=== PATIENT | male | born 1955 | race Caucasian/White ===

== ENCOUNTER 2018-04-03 20:58 | Inpatient (IN) | payer OTHER, SELFPAY ==
[2018-04-03 21:35] LABS: #Basophils 0.1 thou/uL (0.0-0.2); #Eosinphils 0.7 thou/uL (0.0-0.7); #Lymphocytes 2.4 thou/uL (1.20-3.40); #Monocytes 2.2 thou/uL (0.11-0.59); #Neutrophils 10.7 thou/uL (1.40-6.50); %Basophils 0.6 % (0.0-1.0); %Eosinophils 4.5 % (0.0-10.0); %Lymphocytes 14.9 % (21.0-51.0); %Monocytes 13.7 % (0.0-10.0); %Neutrophils 66.3 % (42.0-75.0); Hemoglobin 13.4 g/dL (14.0-18.0); Mean Corpuscular HGB CONC 32.9 g/dL (32.0-36.0); Mean Corpuscular Hemoglobin 29.6 pg (27.0-31.0); Platelet Count 371 thou/uL (130-400); RBC Distribution Width 12.4 % (11.5-14.5); Red Blood Cell (RBC) Count 4.52 mill/uL (4.70-6.10); White Blood Cell (WBC) Count 16.1 thou/uL (4.8-10.8)
--- NOTE | 2018-04-03 21:42 | RAD ---
CHEST ONE VIEW: 04/03/18 HISTORY: Cough. Vomiting. FINDINGS: Normal cardiac silhouette. Pulmonary vessels and hilum are normal. Costophrenic angles are clear. Pat adrienne interstitial opacities throughout the lung parenchyma, greatest in the lung bases. Bilateral lowe r lobe infiltrates cannot be excluded. There is no pneumothorax. No osseous abnormality. IMPRESSION: Bilateral lower lobe infiltrates. Continued surveillance to ensure resolution. POS: [facility]
[2018-04-03 21:57] LABS: ALT (SGPT) 30 U/L (8-55); AST (SGOT) 27 U/L (5-34); Albumin 3.3 g/dL (3.4-4.8); Alkaline Phosphatase 84 U/L (40-150); Anion Gap 13 mmol/L (10-20); BUN (Urea Nitrogen) 9 mg/dL (8.4-25.7); Bilirubin, Total 0.3 mg/dL (0.2-1.2); Calc. Creatinine Clearance 0 mL/min (70-130); Calcium 9.3 mg/dL (7.8-10.44); Carbon Dioxide 24 mmol/L (23-31); Chloride 103 mmol/L (98-107); Estimated GFR-MDRD Greater than 90; Globulin 3.4 g/dL (2.4-3.5); Glucose 137 mg/dL (80-115); Lipase 10 U/L (8-78); Potassium 3.8 mmol/L (3.5-5.1); Protein, Total 6.7 g/dL (5.8-8.1); Sodium 136 mmol/L (136-145)
[2018-04-03 22:54] LABS: Bilirubin Negative (Negative); Blood, Urine Negative (Negative); Clarity CLOUDY (Clear); Glucose, Urine (Dipstick) Negative (Negative); Leukocyte Moderate (Negative); Nitrite Negative (Negative); Protein, Urine (Dipstick) Negative (Neg-Trace); Specific Gravity, Urine 1.008 (1.002-1.036); pH, Urine 6.5 (5.0-9.0)
[2018-04-03 22:56] LABS: Bacteria/HPF Rare-Few HPF (None Seen); Hyaline Casts/LPF 0-3 HYALINE CAST LPF (0-3 Hyaline); RBC/HPF None Seen HPF (0-3); Squamous Epithelial None Seen HPF (0-3)
[2018-04-03] MEDS ORDERED: cefTRIAXone\\ROCEPHIN 1 GM VIAL ONE (23:55)
[2018-04-03] MEDS ORDERED: Azithromycin 500 MG VIAL ONE (23:55)
[2018-04-04 00:53] LABS: Troponin I 0.013 ng/mL (< 0.028)
[2018-04-04] MEDS ORDERED: Acetaminophen 325 MG TAB PO PRN (01:48)
[2018-04-04] MEDS ORDERED: Ondansetron ODT 4 MG TAB PO PRN (01:48)
[2018-04-04 02:05] VITALS: BMI 25.3
[2018-04-04 03:29] VITALS: TEMP 98.1
[2018-04-04 03:45] LABS: Band 11 % (5-11); Eosinophils 4 % (0-10); Hemoglobin 12.6 g/dL (14.0-18.0); Lymphocytes 26 % (21-51); MDiff Complete? YES; Mean Corpuscular HGB CONC 33.2 g/dL (32.0-36.0); Mean Corpuscular Hemoglobin 29.8 pg (27.0-31.0); Mean Corpuscular Volume 89.8 fL (78.0-98.0); Mean Platelet Volume 6.9 fL (7.4-10.4); Monocytes 11 % (0-10); Neutrophil 48 % (42-75); PLT Morphology Comment Appears Adequate; Platelet Count 354 thou/uL (130-400); RBC Distribution Width 12.2 % (11.5-14.5); Red Blood Cell (RBC) Count 4.24 mill/uL (4.70-6.10); White Blood Cell (WBC) Count 16.6 thou/uL (4.8-10.8)
[2018-04-04 03:54] LABS: ALT (SGPT) 26 U/L (8-55); AST (SGOT) 23 U/L (5-34); Albumin 2.9 g/dL (3.4-4.8); Alkaline Phosphatase 75 U/L (40-150); Anion Gap 11 mmol/L (10-20); BUN (Urea Nitrogen) 10 mg/dL (8.4-25.7); Bilirubin, Total 0.3 mg/dL (0.2-1.2); Calc. Creatinine Clearance 113 mL/min (70-130); Calcium 8.7 mg/dL (7.8-10.44); Carbon Dioxide 25 mmol/L (23-31); Chloride 107 mmol/L (98-107); Estimated GFR-MDRD Greater than 90; Globulin 2.9 g/dL (2.4-3.5); Glucose 122 mg/dL (80-115); Potassium 3.9 mmol/L (3.5-5.1); Protein, Total 5.8 g/dL (5.8-8.1); Sodium 139 mmol/L (136-145)
[2018-04-04 03:58] LABS: Troponin I Less than 0.010 ng/mL (< 0.028)
--- NOTE | 2018-04-04 04:23 | HP-2 ---
DATE OF ADMISSION: 04/04/2018 TIME OF ADMISSION: 0015. CODE STATUS: FULL. PRIMARY CARE PHYSICIAN: Dr. Lian Louis. ATTENDING: Dr. Len Duncan. HISTORIAN: Patient and family. CHIEF COMPLAINT: Cough. HISTORY OF PRESENT ILLNESS: This is a 63-year-old male with chief complaint of 1 day of cough associated with yellow sputum, who had a preceding 1 week event of feeling malaise, weak, and having chills. Symptom associated with yellow sputum production, increased SOB. He stated that he has not used any antibiotics within the last 3 months and he has not had issues like this before. His past medical history is pertinent for tobacco use approximately 40- year pack history and is a current smoker. In the ER, he received ceftriaxone, azithromycin, and 1 liter of normal saline. PAST MEDICAL HISTORY: 1. 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 2. Benign prostatic hypertrophy. 3. Hypertension. PAST SURGICAL HISTORY: 1. Right knee surgery. 2. Cholecystectomy. ALLERGIES: No known drug allergies. MEDICATIONS: 1. Amlodipine 10 mg daily. 2. Flomax 0.4 mg daily. 3. Lisinopril 20 mg daily. FAMILY HISTORY: Denies any family history of heart problem. Does endorse mother who has emphysema and who was also a heavy smoker. SOCIAL HISTORY: Endorses current tobacco use 1 pack per day for 67-cqso-lwly history. Denies alcohol use. Endorses marijuana use, was previously employed as a electric crane operator. Lives with 2 siblings. He has no recent sick contacts. REVIEW OF SYSTEMS: General: Endorses subjective fever and chills. Eyes: Denies acute vision changes. ENT: Endorses nasal congestion. Denies rhinorrhea or sore throat. Respiratory: Endorses cough and shortness of breath. Cardiovascular: Denies chest pain or palpitation. GI: Endorses nausea. Denies vomiting, diarrhea, constipation, or abdominal pain. Genitourinary: Denies dysuria. Skin: Denies rash, lesion, or edema. Musculoskeletal: Denies joint pain or myalgia. Neurologic: Endorses generalized weakness and left-sided focal weakness. Psychiatric: Denies anxiety and depression. PHYSICAL EXAMINATION: VITAL SIGNS: Blood pressure 152/87, pulse 93, respirations 24, temperature 100.1, O2 of 94% on room air. GENERAL: Alert, oriented, not in acute distress, well-developed and appropriately interactive. EYES: Conjunctivae within normal limits. ENT: Nasal mucosa within normal limits without any obvious rhinorrhea. Oropharynx moist. NECK: Supple without lymphadenopathy. CARDIOVASCULAR: Regular rate and rhythm with no obvious murmur or gallops. RESPIRATORY: Normal effort and clear to auscultation bilaterally; however, every time patient takes a deep breath, he develops a hacking cough. SKIN: Warm and dry with no cyanosis or edema. ABDOMEN: Soft, not tender to palpation. Bowel sounds heard throughout. No masses or distention. EXTREMITIES: No cyanosis or edema present. MUSCULOSKELETAL: Muscle strength 5/5. Tone within normal limits. NEUROLOGIC: Mildly decreased strength 4/5 on left side. GCS 15. PSYCHIATRIC: Appropriate. LABORATORY DATA: 1. WBCs 16.1, hemoglobin 13.4, platelet 371, MCV 90. 2. Sodium 136, chloride 103, potassium 3.8, bicarbonate 24, BUN 9, creatinine 0.76, glucose 137, calcium 9.3. 3. AST 27, ALT 20, alkaline phosphatase 84. 4. Lactic acid 1.6. 5. Chest x-ray: Impression: Bilateral lower lobe infiltrate, possible pneumonia. ASSESSMENT AND PLAN: 1. Chronic obstructive pulmonary disease exacerbation based on physical exam and history, however, cannot rule out pneumonia. Plan is to start the patient on antibiotics to cover for both issue and also start him on steroids for chronic obstructive pulmonary disease and DuoNeb treatment. We will get an x- ray tomorrow to see if the pneumonia becomes more apparent, after the patient had received fluid in the ER and we will also obtain sputum stain along with urine antigen and to help rule out pneumonia. 2. Substance abuse. We will advise patient against tobacco and marijuana use. Patient will be placed on nicotine patch while he is here. 3. BPH. Continue Flomax. 4. Hypertension. Continue home medications, amlodipine and lisinopril. 5. Atypical chest pain, as patient only has pain when he is coughing and he does not have any exertional chest pain, though he did have some risk factors for it. We will obtain troponin and trended and admit to telemetry. DISPOSITION/LENGTH OF HOSPITAL STAY: Anticipate at least 2 hospital stay, we will admit to telemetry at this time, as patient told ER physician that he had chest pain at some point, though he did not complain about that during this interview. History and physical exam as well as management discussed with Dr. Duncan who agrees. SANTY
--- NOTE | 2018-04-04 07:47 | PDOC.EVN ---
Attending Addendum - Attending Addendum Date/Time: 04/04/18 0742 I personally evaluated the patient and discussed the management with Dr. Riddle I agree with the History, Examination, Assessment and Plan documented above with any addition or exceptions noted below.Patient 63 yo HTN male with hx chronic tobacco use recently relocated to this area to retire. Patient with progressive shortness of breath, productive cough and chills. Patient present to ER found with Community acquired pneumonia and exacerbation of COPD. PMHX notable for HTN ,and CVA 2 years ago with residual numbness left upper extremity. This AM patient with short run of SVT which will need further cardiac evaluation.
[2018-04-04] MEDS ORDERED: predniSONE 20 MG TAB PO SCH (08:00)
[2018-04-04 08:43] LABS: Legionella Urinary Ag Negative (Negative); Strep pneumo Urine Ag NEGATIVE (NEGATIVE)
[2018-04-04] MEDS ORDERED: Lisinopril 20 MG TAB PO SCH (09:00)
[2018-04-04] MEDS ORDERED: Amlodipine 10 MG TAB PO SCH (09:00)
[2018-04-04] MEDS ORDERED: Nicotine 21 MG PATCH TD SCH (09:00)
[2018-04-04] MEDS ORDERED: Enoxaparin Sodium 40 MG/0.4 ML SYRINGE SC SCH (09:00)
--- NOTE | 2018-04-04 10:46 | RAD ---
2 VIEW CHEST: Date: 04/04/18 HISTORY: Pneumonia follow-up. COMPARISON: 1 view exam of 04/03/18. FINDINGS: Left basilar infiltrate again noted. No significant interval change. Right lung appears clear and unc hanged. Vascular markings normal. IMPRESSION: Left basilar infiltrate again noted. POS: [facility]
[2018-04-04 18:17] VITALS: BP 148/63
[2018-04-04] MEDS ORDERED: Tamsulosin HCl 0.4 MG CAP PO SCH (21:00)
== END 2018-04-04 16:56 | disposition home or self-care (01) | DRG 194 ==
LOC: ERS 20:58 → 2NO 04-04 01:15
PROVIDERS: ADMIT Family Medicine; ATTEND Family Medicine
DX: J18.9 Pneumonia, unspecified organism (principal); J44.1 Chronic obstructive pulmonary disease with (acute) exacerbation; J44.0 Chronic obstructive pulmonary disease with (acute) lower respiratory infection; I47.1 Supraventricular tachycardia; I69.354 Hemiplegia and hemiparesis following cerebral infarction affecting left non-dominant side; I10 Essential (primary) hypertension; N40.0 Benign prostatic hyperplasia without lower urinary tract symptoms; F17.210 Nicotine dependence, cigarettes, uncomplicated
CPT/HCPCS: 36415; 71045; 71046; 80053; 81003; 81015; 83605; 83690; 84484; 85025; 87040; 87899; 93005; 94640; J0456; J0696; J1650; J1956; J7506; J7620

== ENCOUNTER 2022-06-11 08:11 | Inpatient (IN) | payer MEDICARE ==
[2022-06-11] MEDS ORDERED: Sodium Chloride 0.9% 100 ML ONE (09:02)
[2022-06-11] MEDS ORDERED: Magnesium 2 GM/50 ML BAG (IN WATER) ONE (09:02)
[2022-06-11] MEDS ORDERED: cefTRIAXone\\ROCEPHIN 1 GM VIAL ONE (09:02)
[2022-06-11] MEDS ORDERED: Azithromycin 500 MG VIAL ONE (09:02)
[2022-06-11 09:37] LABS: #Eosinphils 0.1 thou/uL (0.0-0.7); #Lymphocytes 0.7 thou/uL (1.20-3.40); #Monocytes 0.5 thou/uL (0.11-0.59); %Basophils 0.3 % (0.0-1.0); %Eosinophils 1.2 % (0.0-10.0); %Lymphocytes 5.7 % (21.0-51.0); %Monocytes 3.9 % (0.0-10.0); %Neutrophils 88.9 % (42.0-75.0); Hemoglobin 13.6 g/dL (14.0-18.0); Mean Corpuscular HGB CONC 32.4 g/dL (32.0-36.0); Mean Corpuscular Hemoglobin 30.1 pg (27.0-31.0); Mean Corpuscular Volume 92.9 fL (78.0-98.0); Mean Platelet Volume 8.1 fL (7.4-10.4); Platelet Count 282 thou/uL (130-400); RBC Distribution Width 13.2 % (11.5-14.5); Red Blood Cell (RBC) Count 4.52 mill/uL (4.70-6.10); White Blood Cell (WBC) Count 12.4 thou/uL (4.8-10.8)
[2022-06-11] MEDS ORDERED: Furosemide 40 MG/4 ML VIAL ONE (09:49)
[2022-06-11] MEDS ORDERED: Aspirin Chewable 81 MG TAB ONE (09:49)
[2022-06-11] MEDS ORDERED: Nitroglycerin 2% Ointment 1 INCH/1 GM Packet ONE (09:49)
[2022-06-11 09:57] LABS: ALT (SGPT) 26 U/L (8-55); AST (SGOT) 24 U/L (5-34); Albumin 3.8 g/dL (3.4-4.8); Alkaline Phosphatase 80 U/L (40-110); Anion Gap 14 mmol/L (10-20); BUN (Urea Nitrogen) 10 mg/dL (8.4-25.7); CK (CPK) 37 U/L (30-200); Calc. Creatinine Clearance 0 mL/min (70-130); Carbon Dioxide 21 mmol/L (23-31); Chloride 105 mmol/L (98-107); Estimated GFR 98; Glucose 129 mg/dL (80-115); Potassium 4.2 mmol/L (3.5-5.1); Protein, Total 6.8 g/dL (5.8-8.1); Sodium 136 mmol/L (136-145)
[2022-06-11 10:24] LABS: Bacteria/HPF None Seen HPF (None Seen); Bilirubin Negative (Negative); Blood, Urine Negative (Negative); Clarity Clear (Clear); Glucose, Urine (Dipstick) Normal (Negative); Ketone, Urine Negative (Negative); Leukocyte 25 Leu/uL (Negative); Nitrite Negative (Negative); Protein, Urine (Dipstick) Negative (Neg-Trace); RBC/HPF 0-3 HPF (0-3); Specific Gravity, Urine 1.013 (1.002-1.036); Squamous Epithelial 0-3 HPF (0-3); WBC/HPF None Seen HPF (0-3)
[2022-06-11 10:45] LABS: SARS-CoV-2 NAA Rapid Test Not Detected (NotDetected)
[2022-06-11] MEDS ORDERED: Acetaminophen 325 MG TAB PO PRN (11:33)
[2022-06-11] MEDS ORDERED: Ondansetron PF 4 MG/2 ML Vial IVP PRN (11:33)
[2022-06-11] MEDS ORDERED: hydrALAZINE 20 MG/ML VIAL SLOW IVP PRN (11:40)
[2022-06-11 14:17] LABS: Troponin I 0.022 ng/mL (< 0.028)
[2022-06-11] MEDS: Heparin 5,000 UNITS/ML VIAL SC SCH ×2 (14:36→20:57)
[2022-06-11] MEDS: Furosemide 40 MG/4 ML VIAL SLOW IVP SCH (14:36)
[2022-06-11 15:00] VITALS: BMI 22.5
[2022-06-11 17:40] LABS: Troponin I 0.022 ng/mL (< 0.028)
[2022-06-11 21:27] LABS: Troponin I 0.019 ng/mL (< 0.028)
[2022-06-12 04:25] LABS: #Lymphocytes 1.6 thou/uL (1.20-3.40); #Monocytes 1.4 thou/uL (0.11-0.59); #Neutrophils 12.2 thou/uL (1.40-6.50); %Basophils 0.2 % (0.0-1.0); %Eosinophils 0.1 % (0.0-10.0); %Lymphocytes 10.5 % (21.0-51.0); %Monocytes 9.3 % (0.0-10.0); %Neutrophils 79.9 % (42.0-75.0); Hemoglobin 12.7 g/dL (14.0-18.0); Mean Corpuscular HGB CONC 32.5 g/dL (32.0-36.0); Mean Corpuscular Hemoglobin 30.2 pg (27.0-31.0); Mean Corpuscular Volume 92.8 fL (78.0-98.0); Mean Platelet Volume 8.3 fL (7.4-10.4); Platelet Count 279 thou/uL (130-400); RBC Distribution Width 13.3 % (11.5-14.5); Red Blood Cell (RBC) Count 4.21 mill/uL (4.70-6.10); White Blood Cell (WBC) Count 15.3 thou/uL (4.8-10.8)
[2022-06-12 04:45] LABS: Hemoglobin A1c 5.6 % (4.0-6.0)
[2022-06-12 04:47] LABS: ALT (SGPT) 22 U/L (8-55); AST (SGOT) 16 U/L (5-34); Albumin 3.5 g/dL (3.4-4.8); Alkaline Phosphatase 73 U/L (40-110); Anion Gap 15 mmol/L (10-20); BUN (Urea Nitrogen) 18 mg/dL (8.4-25.7); Bilirubin, Total 0.8 mg/dL (0.2-1.2); Calc. Creatinine Clearance 62 mL/min (70-130); Calcium 8.7 mg/dL (7.8-10.44); Carbon Dioxide 25 mmol/L (23-31); Cardiac Risk 3.7 (Less than 4.5); Chloride 102 mmol/L (98-107); Cholesterol 142 mg/dl (< 200 Desired); Estimated GFR 78; Glucose 123 mg/dL (80-115); HDL Cholesterol 38 mg/dL (>60 Neg Risk); LDL Cholesterol, Calculated 92 mg/dL; Magnesium 1.7 mg/dL (1.6-2.6); Potassium 3.9 mmol/L (3.5-5.1); Protein, Total 6.5 g/dL (5.8-8.1); Sodium 138 mmol/L (136-145); Triglycerides 62 mg/dL (Less than 150)
[2022-06-12] MEDS: Furosemide 40 MG/4 ML VIAL SLOW IVP SCH ×2 (05:44→15:39)
[2022-06-12] MEDS: Nicotine 21 MG PATCH TD SCH (08:27)
[2022-06-12] MEDS: Tamsulosin HCl 0.4 MG CAP PO SCH (08:27)
[2022-06-12] MEDS: Heparin 5,000 UNITS/ML VIAL SC SCH ×3 (08:28→21:33)
[2022-06-12] MEDS ORDERED: Amlodipine 10 MG TAB PO SCH (09:00)
[2022-06-12] MEDS ORDERED: Lisinopril 20 MG TAB PO SCH (09:00)
[2022-06-13 04:44] LABS: Anion Gap 11 mmol/L (10-20); BUN (Urea Nitrogen) 25 mg/dL (8.4-25.7); Calc. Creatinine Clearance 74 mL/min (70-130); Calcium 8.6 mg/dL (7.8-10.44); Carbon Dioxide 26 mmol/L (23-31); Chloride 102 mmol/L (98-107); Estimated GFR 96; Glucose 98 mg/dL (80-115); Potassium 3.3 mmol/L (3.5-5.1); Sodium 136 mmol/L (136-145)
[2022-06-13] MEDS: Furosemide 40 MG/4 ML VIAL SLOW IVP SCH (05:23)
[2022-06-13] MEDS ORDERED: Lisinopril 10 MG TAB PO SCH (09:00)
[2022-06-13] MEDS: Heparin 5,000 UNITS/ML VIAL SC SCH ×3 (09:10→21:13)
[2022-06-13] MEDS: Tamsulosin HCl 0.4 MG CAP PO SCH (09:10)
[2022-06-13] MEDS: Nicotine 21 MG PATCH TD SCH (09:10)
[2022-06-13] MEDS ORDERED: Potassium Chloride 20 MEQ TAB PO SCH (10:00)
[2022-06-13] MEDS: Furosemide 40 MG TAB PO SCH (15:19)
[2022-06-14 04:32] LABS: #Basophils 0.1 thou/uL (0.0-0.2); #Eosinphils 0.4 thou/uL (0.0-0.7); #Lymphocytes 3.3 thou/uL (1.20-3.40); #Monocytes 1.1 thou/uL (0.11-0.59); #Neutrophils 6.4 thou/uL (1.40-6.50); %Basophils 0.7 % (0.0-1.0); %Eosinophils 3.9 % (0.0-10.0); %Lymphocytes 28.9 % (21.0-51.0); %Monocytes 9.6 % (0.0-10.0); %Neutrophils 56.9 % (42.0-75.0); Hemoglobin 13.4 g/dL (14.0-18.0); Mean Corpuscular HGB CONC 32.4 g/dL (32.0-36.0); Mean Corpuscular Hemoglobin 29.9 pg (27.0-31.0); Mean Corpuscular Volume 92.4 fL (78.0-98.0); Mean Platelet Volume 7.9 fL (7.4-10.4); Platelet Count 314 thou/uL (130-400); RBC Distribution Width 13.2 % (11.5-14.5); Red Blood Cell (RBC) Count 4.48 mill/uL (4.70-6.10); White Blood Cell (WBC) Count 11.3 thou/uL (4.8-10.8)
[2022-06-14 04:53] LABS: Anion Gap 14 mmol/L (10-20); BUN (Urea Nitrogen) 26 mg/dL (8.4-25.7); Calc. Creatinine Clearance 73 mL/min (70-130); Calcium 8.9 mg/dL (7.8-10.44); Carbon Dioxide 25 mmol/L (23-31); Chloride 101 mmol/L (98-107); Estimated GFR 96; Glucose 108 mg/dL (80-115); Potassium 3.5 mmol/L (3.5-5.1); Sodium 136 mmol/L (136-145)
[2022-06-14 05:12] LABS: Free T4 (Free Thyroxine) 1.17 ng/dL (0.70-1.48)
[2022-06-14] MEDS: Tamsulosin HCl 0.4 MG CAP PO SCH (09:32)
[2022-06-14] MEDS: Furosemide 40 MG TAB PO SCH ×2 (09:32→16:28)
[2022-06-14] MEDS: Aspirin 81 mg Enteric Coated Tablet PO SCH (09:32)
[2022-06-14] MEDS: Lisinopril 2.5 MG TAB PO SCH (09:32)
[2022-06-14] MEDS: Nicotine 21 MG PATCH TD SCH (09:33)
[2022-06-14] MEDS: Heparin 5,000 UNITS/ML VIAL SC SCH ×3 (09:34→21:41)
[2022-06-14] MEDS: Atorvastatin Calcium 20 MG TAB PO SCH (21:41)
[2022-06-15 05:04] LABS: Anion Gap 12 mmol/L (10-20); BUN (Urea Nitrogen) 23 mg/dL (8.4-25.7); Calc. Creatinine Clearance 73 mL/min (70-130); Calcium 9.5 mg/dL (7.8-10.44); Carbon Dioxide 27 mmol/L (23-31); Chloride 99 mmol/L (98-107); Estimated GFR 97; Glucose 122 mg/dL (80-115); Potassium 3.4 mmol/L (3.5-5.1); Sodium 135 mmol/L (136-145)
[2022-06-15] MEDS ORDERED: Potassium Chloride 20 MEQ TAB PO SCH (08:15)
[2022-06-15] MEDS: Aspirin 81 mg Enteric Coated Tablet PO SCH (10:38)
[2022-06-15] MEDS: Heparin 5,000 UNITS/ML VIAL SC SCH ×3 (10:38→21:44)
[2022-06-15] MEDS: Nicotine 21 MG PATCH TD SCH (10:38)
[2022-06-15] MEDS: Furosemide 40 MG TAB PO SCH (10:38)
[2022-06-15] MEDS: Lisinopril 2.5 MG TAB PO SCH (10:38)
[2022-06-15] MEDS: Tamsulosin HCl 0.4 MG CAP PO SCH (10:38)
[2022-06-15] MEDS: Carvedilol 3.125 MG TAB PO SCH (16:25)
[2022-06-15] MEDS: Atorvastatin Calcium 20 MG TAB PO SCH (21:45)
[2022-06-16 05:14] LABS: Anion Gap 13 mmol/L (10-20); BUN (Urea Nitrogen) 26 mg/dL (8.4-25.7); Calc. Creatinine Clearance 69 mL/min (70-130); Calcium 9.7 mg/dL (7.8-10.44); Carbon Dioxide 26 mmol/L (23-31); Chloride 102 mmol/L (98-107); Estimated GFR 96; Glucose 90 mg/dL (80-115); Potassium 3.6 mmol/L (3.5-5.1); Sodium 137 mmol/L (136-145)
[2022-06-16] MEDS: Tamsulosin HCl 0.4 MG CAP PO SCH (07:01)
[2022-06-16] MEDS: Aspirin 81 mg Enteric Coated Tablet PO SCH (07:01)
[2022-06-16] MEDS: Carvedilol 3.125 MG TAB PO SCH ×2 (07:01→15:45)
[2022-06-16] MEDS: Lisinopril 2.5 MG TAB PO SCH (07:01)
[2022-06-16] MEDS ORDERED: Iopamidol 370 76% 100 ML VIAL ONE (10:32)
[2022-06-16] MEDS ORDERED: Nitroglycerin 100MG/250ML BOT 250 ML ONE (12:59)
[2022-06-16] MEDS ORDERED: Heparin 10,000 UNITS/ 10 ML VIAL ONE (12:59)
[2022-06-16] MEDS ORDERED: Lidocaine 1% PF 5 ML VIAL ONE (12:59)
[2022-06-16] MEDS ORDERED: Verapamil 5 MG/2 ML VIAL ONE (12:59)
[2022-06-16] MEDS ORDERED: Fentanyl 100 MCG/2 ML VIAL ONE (14:04)
[2022-06-16] MEDS ORDERED: Midazolam HCl 2 mg/2 ml Vial ONE (14:04)
[2022-06-16] MEDS ORDERED: Lidocaine 1% 50ML VIAL ONE (14:22)
[2022-06-16] MEDS: Heparin 5,000 UNITS/ML VIAL SC SCH ×2 (15:42→20:42)
[2022-06-16] MEDS: Furosemide 40 MG TAB PO SCH (15:42)
[2022-06-16] MEDS: Nicotine 21 MG PATCH TD SCH (15:45)
[2022-06-16] MEDS: Atorvastatin Calcium 20 MG TAB PO SCH (20:42)
[2022-06-17 04:30] LABS: Anion Gap 10 mmol/L (10-20); BUN (Urea Nitrogen) 25 mg/dL (8.4-25.7); Calc. Creatinine Clearance 68 mL/min (70-130); Carbon Dioxide 27 mmol/L (23-31); Chloride 102 mmol/L (98-107); Estimated GFR 95; Glucose 131 mg/dL (80-115); Potassium 3.7 mmol/L (3.5-5.1); Sodium 135 mmol/L (136-145)
[2022-06-17] MEDS ORDERED: Empagliflozin 10 MG TAB PO SCH (09:00)
[2022-06-17] MEDS: Aspirin 81 mg Enteric Coated Tablet PO SCH (09:27)
[2022-06-17] MEDS: Lisinopril 2.5 MG TAB PO SCH (09:27)
[2022-06-17] MEDS: Tamsulosin HCl 0.4 MG CAP PO SCH (09:27)
[2022-06-17] MEDS: Furosemide 40 MG TAB PO SCH (09:27)
[2022-06-17] MEDS: Carvedilol 3.125 MG TAB PO SCH ×2 (09:27→16:24)
[2022-06-17] MEDS: Heparin 5,000 UNITS/ML VIAL SC SCH ×2 (09:28→16:24)
[2022-06-17] MEDS: Nicotine 21 MG PATCH TD SCH (09:28)
[2022-06-17 15:49] VITALS: BP 114/70; TEMP 97.6
== END 2022-06-17 19:10 | disposition home or self-care (01) | DRG 286 ==
LOC: SUATTDRO 08:11 → ERS 08:11 → 2NO 11:39
PROVIDERS: ADMIT Hospitalist; ATTEND Hospitalist
PROC: 4A023N7 Measurement of Cardiac Sampling and Pressure, Left Heart, Percutaneous Approach (ICD-10-PCS; principal; 2022-06-16)
PROC: B2111ZZ Fluoroscopy of Multiple Coronary Arteries using Low Osmolar Contrast (ICD-10-PCS; 2022-06-16)
PROC: B2151ZZ Fluoroscopy of Left Heart using Low Osmolar Contrast (ICD-10-PCS; 2022-06-16)
DX: I11.0 Hypertensive heart disease with heart failure (principal); I50.43 Acute on chronic combined systolic (congestive) and diastolic (congestive) heart failure; J96.01 Acute respiratory failure with hypoxia; Z20.822 Contact with and (suspected) exposure to COVID-19; N40.0 Benign prostatic hyperplasia without lower urinary tract symptoms; F17.210 Nicotine dependence, cigarettes, uncomplicated; E87.6 Hypokalemia; I16.0 Hypertensive urgency; I25.5 Ischemic cardiomyopathy; I42.0 Dilated cardiomyopathy; I25.10 Atherosclerotic heart disease of native coronary artery without angina pectoris; Z79.899 Other long term (current) drug therapy
CPT/HCPCS: 36415; 36416; 71045; 80048; 80053; 80061; 81003; 81015; 82550; 83036; 83605; 83735; 83880; 84439; 84443; 84479; 84484; 85025; 87040; 87077; 87086; 87149; 87186; 93005; 93306; 93458; 93571; 94640; 94760; 96374; 96375; 99152; 99153; J0153; J0456; J0696; J1644; J1940; J2250; J3010; J3475; J3490; J7620; U0002